=== PATIENT | female | born 1985 | race Caucasian/White ===

== ENCOUNTER → 2016-06-11 | Outpatient (CLI) | payer BC ==
[~2016-06-11] MED LIST: BCPILLS PO; CEPH-571 PO; OXYC-57 PO; OXYC1TAB3 PO
== END | disposition home or self-care (01) ==
LOC: C.PAPS 10:07
PROVIDERS: ATTEND Obstetrics & Gynecology
DX: Z01.419 Encounter for gynecological examination (general) (routine) without abnormal findings (principal)

== ENCOUNTER 2016-07-09 07:53 | Emergency (ER) | payer BC, OTHER ==
[~2016-07-09] VITALS: Ht 172.7 cm; Wt 72.0 kg
[2016-07-09 07:56] VITALS: TEMP 36.4; Ht 172.7 cm; Wt 72.0 kg
[2016-07-09] MEDS ORDERED: ONDANSETRON INJ 2 MG/ML 2 ML VIAL ONE (08:02)
[2016-07-09] MEDS ORDERED: HYDROmorphone INJ 1 MG/ML SYR ONE (08:02)
[2016-07-09] MEDS ORDERED: KETAMINE HCL INJ 50 MG/ML 10 ML VIAL IV STA (08:07)
[2016-07-09] MEDS ORDERED: SODIUM CHLORIDE 0.9% 1000ML 1,000 ML IV STA (08:07)
[2016-07-09] MEDS ORDERED: PROPOFOL IV EMULSION 10 MG/ML 20 ML VIAL IV STA (08:07)
[2016-07-09] MEDS ORDERED: METOCLOPRAMIDE HCL INJ 5 MG/ML 2 ML VIAL ONE (08:31)
--- NOTE | 2016-07-09 08:47 | DIAGNOSTIC IMAGING REPORT ---
RIGHT ANKLE MIN 3 VIEWS ROUTINE CLINICAL HISTORY: Right ankle pain status post trauma COMPARISON: None. DISCUSSION: There is an acute oblique fracture of the distal fibula. There is acute fracture of the medial malleolus. There is acute intra-articular fracture involving the anterior aspect of the distal tibia. This fracture fragment is nondisplaced and measures 23 mm. The ankle mortise appears intact on these nonstress views. There is an overlying soft tissue injury. There is soft tissue swelling. IMPRESSION: 1. Acute fracture of the medial malleolus 2. Acute intra-articular fracture involving the mid and anterior aspect of the tibial plafond 3. Acute oblique fracture of the distal fibula Electronically signed by: Mp Martinez M.D. 07/09/2016 8:46 AM Dictated Date/Time: 07/09/2016 8:43 AM
[2016-07-09] MEDS ORDERED: HYDROmorphone INJ 1 MG/ML SYR IV STA (09:27)
[2016-07-09] MEDS ORDERED: BCPILLS PO (09:35)
[2016-07-09 10:00] VITALS: BP 138/89; PULSE 102; O2SAT 100
[2016-07-09] MEDS ORDERED: OXYC1TAB3 PO (10:08)
--- NOTE | 2016-07-09 10:08 | EMERGENCY ROOM VISIT NOTE ---
ED Visit Note First contact with patient: 07:59 CHIEF COMPLAINT: Right ankle injury this morning HISTORY OF PRESENT ILLNESS: Patient is an otherwise healthy 31-year-old white female who is brought to the emergency department by family for evaluation of an acute right ankle injury that she sustained just prior to arrival. She slipped on ice outside of her home and fell. She rolled the left ankle awkwardly. She has an obvious deformity and has not attempted to bear weight. She did not strike her head or lose consciousness. She complains of pain in the right ankle that she rates a 10/10. She denies any other injuries. No numbness or weakness of the foot. She denies knee pain. REVIEW OF SYSTEMS: Review of systems as per HPI. All other systems reviewed were negative. 10 systems reviewed. PMH: Electronic medical records are reviewed and summarized as above/below. See Problem List. SOCIAL HISTORY: Patient lives at home with her family. Smoker. PHYSICAL EXAM: Vital Signs: Reviewed Nurses' notes. MENTAL STATUS: Patient is an obviously uncomfortable 31-year-old white female who is awake and alert and in moderate distress due to her right ankle injury. HEART: Regular rate and rhythm. LUNGS: Clear to auscultation. ANKLE: Examination of the right ankle show an obvious deformity. The ankle appears to be dislocated laterally. She has an abrasion noted over the medial malleolus, no puncture or active bleeding. There is no pain over the proximal fibular head. NEUROVASCULAR: Sensation intact to light touch, foot is warm and well-perfused, dorsalis pedis pulse is palpable. Capillary refills less than 2 seconds. EMERGENCY DEPARTMENT COURSE: The patient was seen and assessed immediately upon arrival in her room. She has an obvious deformity of the right ankle. Dr. Malik was appraised of the situation as the patient required conscious sedation for ankle reduction. Please refer to his separate dictation for further information. IV access was obtained. Patient was placed on a construction director. She was given Zofran 4 mg and Dilaudid 1 mg IV prior to procedure for ankle pain. After conscious sedation was administered, the ankle was reduced successfully. Postreduction x-rays were obtained and as noted below. The patient was placed in a short leg posterior and sugar tong Ortho-Glass splint. Splint placement was verified by me and was satisfactory. Patient remained neurovascularly intact. She was allowed to recover from the conscious sedation per protocol. She was reassessed frequently. She complained of increased ankle pain and was given an additional dose of Dilaudid 1 mg IV. Patient's x- rays were reviewed with Fred Juan PA-C. He discussed the patient with Dr. Claudio who was on-call for [facility], and the patient will follow-up in their office next week for further care and surgical intervention. Patient has crutches at home that she can use. Conservative care measures were discussed with her. The patient rated her ankle pain a 2/10 at discharge. Differential diagnoses entertained included fracture, dislocation, subluxation. RIGHT ANKLE MIN 3 VIEWS ROUTINE CLINICAL HISTORY: Right ankle pain status post trauma COMPARISON: None. DISCUSSION: There is an acute oblique fracture of the distal fibula. There is acute fracture of the medial malleolus. There is acute intra-articular fracture involving the anterior aspect of the distal tibia. This fracture fragment is nondisplaced and measures 23 mm. The ankle mortise appears intact on these nonstress views. There is an overlying soft tissue injury. There is soft tissue swelling. IMPRESSION: 1. Acute fracture of the medial malleolus 2. Acute intra-articular fracture involving the mid and anterior aspect of the tibial plafond 3. Acute oblique fracture of the distal fibula Current/Historical Medications Scheduled Control Pills ( Control Pills), 1 TAB PO DAILY Scheduled PRN Oxycodone Immediate Rel Tab (Roxicodone Ir), 1-2 TAB PO Q4H PRN for Severe Pain Allergies Coded Allergies: No Known Allergies (Unverified , 07/09/16) Vital Signs Date Time Temp Pulse Resp B/P Pulse Ox O2 Delivery O2 Flow Rate FiO2 07/09/16 10:00 102 16 138/89 100 Room Air 07/09/16 09:45 148/84 07/09/16 09:40 108 100 07/09/16 09:35 100 100 Nasal Cannula 2.0 07/09/16 09:30 104 147/98 100 07/09/16 09:25 109 100 07/09/16 09:20 90 23 137/95 100 07/09/16 09:15 95 20 141/86 100 Nasal Cannula 2.0 07/09/16 09:10 91 21 135/86 100 07/09/16 09:05 89 21 139/88 100 07/09/16 09:00 98 22 148/91 100 07/09/16 08:55 101 23 142/96 100 07/09/16 08:50 101 25 149/93 100 07/09/16 08:45 152/93 07/09/16 08:43 124 28 100 Nasal Cannula 4.0 07/09/16 08:40 142/85 07/09/16 08:38 135 18 07/09/16 08:35 143/80 07/09/16 08:33 141 18 07/09/16 08:30 142/74 07/09/16 08:28 143 26 07/09/16 08:24 150/84 07/09/16 08:23 127 23 99 07/09/16 08:20 140/90 07/09/16 08:18 99 22 130/90 100 07/09/16 08:15 126/67 07/09/16 08:14 78 07/09/16 08:13 86 14 100 07/09/16 08:12 124/73 07/09/16 07:56 36.4 90 18 116/70 99 Room Air Medications Administered Medications (Trade) Dose Ordered Sig/Sarah Route Start Time Stop Time Status Last Admin Dose Admin Hydromorphone HCl (Dilaudid Inj) 1 mg STK-MED ONCE .ROUTE 07/09/16 08:02 07/09/16 08:05 DC 07/09/16 08:08 1 MG Ondansetron HCl 4 mg 4 mg STK-MED ONCE .ROUTE 07/09/16 08:02 07/09/16 08:06 DC 07/09/16 08:08 4 MG Sodium Chloride (Nss 1000ml) 1,000 ml @ 999 mls/hr Q1H1M STAT IV 07/09/16 08:07 07/09/16 09:07 DC 07/09/16 08:20 999 MLS/HR Ketamine HCl (Ketalar Steri-Vial Inj) 36 mg NOW STAT IV 07/09/16 08:07 07/09/16 08:09 DC 07/09/16 08:21 36 MG Propofol (Diprivan Iv Emulsion 20ml Vial) 36 mg NOW STAT IV 07/09/16 08:07 07/09/16 08:09 DC 07/09/16 08:29 36 MG Metoclopramide HCl (Reglan Inj) 10 mg STK-MED ONCE .ROUTE 07/09/16 08:31 07/09/16 08:34 DC 07/09/16 08:36 10 MG Hydromorphone HCl (Dilaudid Inj) 1 mg NOW STAT IV 07/09/16 09:27 07/09/16 09:28 DC 07/09/16 09:34 1 MG Departure Information Impression Primary Impression: Fracture dislocation of right ankle Prescriptions Oxycodone Immediate Rel Tab (ROXICODONE IR) 5 Mg Tab 1-2 TAB PO Q4H Y for Severe Pain, #30 TAB For Initial Treatment Prov: Aliya Cardoza PA 07/09/16 Referrals No Doctor, Assigned (PCP) Patient Instructions My [facility] Additional Instructions DO NOT drive, drink alcohol, operate machinery, or perform dangerous activities today. You were given medications in the ER that can affect your ability to safely function or operate a vehicle. Oxycodone (OxyIR) 5mg: Take 1-2 pills every four hours for breakthrough pain. Avoid alcohol, operating machinery or dangerous equipment, working on ladders or roofs, DRIVING, or situations where being under the influence may be dangerous. It is recommended to use an [id number] stool softener such as Colace, 100mg twice daily while taking this medication to avoid constipation. Acetaminophen(Tylenol) may be used for fever or pain. Use 1000mg every six hours as needed. Avoid using more than 3000mg in a 24 hour period. This medication can be taken if you need to drive, work, or perform activities which may be dangerous when taking narcotic pain medication. Ice compresses for 20 minutes at a time four times daily for 2-3 days. Use the crutches as instructed with no weight on the right leg. Rest and elevate your injury. Keep the ankle above the level of your heart to reduce swelling and pain. Do not get the splint wet. If your splint feels excessively tight, you have worsening pain, develop numbness or tingling, or your digits appear blue, loosen the vandana wrap. Then reapply the vandana wrap gently without removing the splint. If your symptoms are not quickly relieved return to the ER for re- evaluation. Continue current medications. Return to the ER immediately for any numbness, tingling, severe pain, extreme swelling in the extremity or as needed. Call [facility] this afternoon to arrange follow up with Dr. Claudio for your injury.
--- NOTE | 2016-07-09 10:58 | EMERGENCY ROOM VISIT NOTE ---
ED Visit Note First contact with patient: 07:59 Procedural Sedation Indication Emergent reduction. Total time: 30 minutes. Written consent was obtained after the risks and benefits were explained to the patient, including, but not limited to aspiration, allergic reaction, breathing difficulties, cardiac complications, vomiting, pain, event recall, bleeding, and /or infection. Pre-sedation examination and paperwork completed. The patient was on 100% oxygen via NRB prior to the procedure. Continuos end tidal CO2 monitoring, pulse oximetry, and cardiac monitoring were utilized. Suction, airway equipment, medications, respiratory equipment, and appropriate personnel were prepared prior to the initiation of the procedure. A time out was taken. Sedation was achieved utilizing 36 mg of Propofol and 36 mg of Ketamine. After I observed the patient had reached the appropriate level of sedation the main procedure was performed without complication. Sedation was discontinued and the monitoring continued. The patient recovered quickly from the effects of the medication without complication or adverse event.
--- NOTE | 2016-07-09 15:56 | EMERGENCY ROOM VISIT NOTE ---
Pre-Mod Sedation Assessment General Date of Moderate Sedation: Jul 09, 2016. Vital Signs: Vital Signs Past 12 Hours Date Time Temp Pulse Resp B/P Pulse Ox O2 Delivery O2 Flow Rate FiO2 07/09/16 10:00 102 16 138/89 100 Room Air 07/09/16 09:45 148/84 07/09/16 09:40 108 100 07/09/16 09:35 100 100 Nasal Cannula 2.0 07/09/16 09:30 104 147/98 100 07/09/16 09:25 109 100 07/09/16 09:20 90 23 137/95 100 07/09/16 09:15 95 20 141/86 100 Nasal Cannula 2.0 07/09/16 09:10 91 21 135/86 100 07/09/16 09:05 89 21 139/88 100 07/09/16 09:00 98 22 148/91 100 07/09/16 08:55 101 23 142/96 100 07/09/16 08:50 101 25 149/93 100 07/09/16 08:45 152/93 07/09/16 08:43 124 28 100 Nasal Cannula 4.0 07/09/16 08:40 142/85 07/09/16 08:38 135 18 07/09/16 08:35 143/80 07/09/16 08:33 141 18 07/09/16 08:30 142/74 07/09/16 08:28 143 26 07/09/16 08:24 150/84 07/09/16 08:23 127 23 99 07/09/16 08:20 140/90 07/09/16 08:18 99 22 130/90 100 07/09/16 08:15 126/67 07/09/16 08:14 78 07/09/16 08:13 86 14 100 07/09/16 08:12 124/73 07/09/16 07:56 36.4 90 18 116/70 99 Room Air Review Cardiovascular: regular rate, rhythm, no edema, no gallop, no JVD, no murmur, normal peripheral pulses Abdomen: normal bowel sounds, non tender, soft, no organomegaly, no pulsatile mass, normal rectal exam, occult blood negative Lungs: chest non-tender, lungs clear, normal breath sounds, no respiratory distress, no accessory muscle use Airway Class: I Pre-Sedation Airway Assessment Oral Cavity: WNL Able to Visualize Vocal Cords: No Short Thick Neck: No Hx of Sleep Apnea: No Smoking Status: Current Every Day Smoker Mallampati Classification: Class I (Sft palate,uvula,fauces,pillar) ASA Classification: Class I Procedure Planning Contraindications-for Mod Sed: None Yes Notes The planned sedation has been discussed with the patient and consent obtained. I have identified the patient, determined the appropriateness of sedation and have assessed the patient immediately prior to the procedure. All medicine(s) and interventions are by my order.
--- NOTE | 2016-07-09 15:57 | EMERGENCY ROOM VISIT NOTE ---
Post-Moderate Sedation Plan General Date of Moderate Sedation Jul 09, 2016. Vital Signs: Vital Signs Past 12 Hours Date Time Temp Pulse Resp B/P Pulse Ox O2 Delivery O2 Flow Rate FiO2 07/09/16 10:00 102 16 138/89 100 Room Air 07/09/16 09:45 148/84 07/09/16 09:40 108 100 07/09/16 09:35 100 100 Nasal Cannula 2.0 07/09/16 09:30 104 147/98 100 07/09/16 09:25 109 100 07/09/16 09:20 90 23 137/95 100 07/09/16 09:15 95 20 141/86 100 Nasal Cannula 2.0 07/09/16 09:10 91 21 135/86 100 07/09/16 09:05 89 21 139/88 100 07/09/16 09:00 98 22 148/91 100 07/09/16 08:55 101 23 142/96 100 07/09/16 08:50 101 25 149/93 100 07/09/16 08:45 152/93 07/09/16 08:43 124 28 100 Nasal Cannula 4.0 07/09/16 08:40 142/85 07/09/16 08:38 135 18 07/09/16 08:35 143/80 07/09/16 08:33 141 18 07/09/16 08:30 142/74 07/09/16 08:28 143 26 07/09/16 08:24 150/84 07/09/16 08:23 127 23 99 07/09/16 08:20 140/90 07/09/16 08:18 99 22 130/90 100 07/09/16 08:15 126/67 07/09/16 08:14 78 07/09/16 08:13 86 14 100 07/09/16 08:12 124/73 07/09/16 07:56 36.4 90 18 116/70 99 Room Air Review - Discharge Plan Post Moderate Sedation Plan: On clinical assessment, the patient appears to have tolerated the conscious sedation without complications. Patient is recovering as anticipated. Patient will continue to be monitored by nursing and may be discharged when conscious sedation discharge criteria are met.
[2016-07-13] MEDS ORDERED: OXYC1TAB3 PO (09:43)
--- NOTE | 2016-08-05 08:17 | EDITING REQUIRED CODING QUERY ---
CODING QUERY To promote full compliance with coding requirements relating to patient care, provider participation is requested in all cases of home agent uncertainty. Please assist us with the question(s) below: Coding Question(s): Please dictate the procedure for the ankle reduction noted in ER Visit Notes. Physician's Response(s): Addendum dictated 08/07/2016. Thank you Ramona Metcalf Principal Diagnosis: "_that condition established after study, to be chiefly responsible for occasioning the admission of the patient to the hospital for care." Co-Existing Principal Diagnosis: "_when two or more diagnoses equally meet the criteria for principal diagnosis as determined by the circumstances of admission, diagnostic work up, and/or therapy provided, and the Alphabetic Index, Tabular List, or another coding guideline does not provide sequencing direction, any one of the diagnoses may be sequenced first." "When the physician has documented what appears to be a current diagnosis in the body of the record, but has not included the diagnosis in the final diagnostic statement, the physician should be asked whether the diagnosis should be added." (Source [facility] 2 QTR90. p3-4)
== END 2016-07-09 10:25 | disposition home or self-care (01) ==
LOC: C.EDB 07:55 → C.EDA 10:25
DX: S82.51XA Displaced fracture of medial malleolus of right tibia, initial encounter for closed fracture (principal); S82.431A Displaced oblique fracture of shaft of right fibula, initial encounter for closed fracture; S90.511A Abrasion, right ankle, initial encounter; W00.9XXA Unspecified fall due to ice and snow, initial encounter; F17.200 Nicotine dependence, unspecified, uncomplicated

== ENCOUNTER 2016-07-14 11:30 | Day surgery (SDC) | payer BC ==
[2016-07-13 09:43] VITALS: BMI 24.0
--- NOTE | 2016-07-13 17:07 | HISTORY & PHYSICAL EXAMINATION ---
DATE OF ADMISSION: 07/14/2016 CHIEF COMPLAINT: Ankle injury. HISTORY OF PRESENT ILLNESS: This is a 31-year-old female who sustained a right ankle injury at home after she fell on the ice. She reported to [facility], where she was diagnosed with a fracture dislocation. The patient's ankle was successfully reduced in the Emergency Department and splinted and she is now being set up for an open reduction and internal fixation of the right ankle fracture. PAST MEDICAL HISTORY: The patient is a healthy 31-year-old female with no heart problems, lung problems, diabetes or cancer history. SOCIAL HISTORY: She is a pack per day smoker and an occasional drinker. PAST SURGICAL HISTORY: Negative. FAMILY HISTORY: Noncontributory. REVIEW OF SYSTEMS: The patient complains of obvious right ankle pain and otherwise denies any shortness of breath, chest pain, nausea, vomiting or any other joint complaints. MEDICATIONS: Just control. ALLERGIES: No known drug allergies. PHYSICAL EXAMINATION: GENERAL: Well-developed and well-nourished 31-year-old female in no acute distress. She is alert and oriented x3 and pleasant. HEENT: Normocephalic and atraumatic. Extraocular motions are intact. Pupils are equal and reactive to light. HEART: Regular rate and rhythm. No murmurs are appreciated. LUNGS: Clear. ABDOMEN: Soft and nontender. Bowel sounds are present. EXTREMITIES: Examination of the right shoulder: Skin is intact. Range of motion and strength were deferred. Distal pulses are good. Distal sensation is also intact. DIAGNOSIS: Right ankle fracture dislocation, status post relocation. Otherwise a healthy 31-year-old female. PLAN: The patient was advised of her diagnosis. Indications, risks, benefits, and postop course have all been reviewed. The patient wishes to proceed with a right ankle ORIF. Necessary consent forms, preoperative testing and clearances will be obtained.
[~2016-07-14] VITALS: Ht 172.7 cm; Wt 72.3 kg
[~2016-07-14 11:30] MED LIST changes: +BUPIVACAINE 0.5 % 5 MG/1 ML PF 10ML VIAL ONE; +CEFAZOLIN 1000MG/55 ML D5W IV SCH; -CEPH-571 PO; +LACTATED RINGER'S 1000ML 1,000 ML IV SCH; -OXYC-57 PO
[2016-07-14] MEDS ORDERED: FENTANYL CITRATE INJ 50 MCG/1 ML 2 ML VIAL ONE ×2 (11:45→14:58)
[2016-07-14] MEDS ORDERED: MIDAZOLAM HCL 1 MG/ML 2ML VIAL ONE (11:45)
[2016-07-14] MEDS ORDERED: ONDANSETRON INJ 2 MG/ML 2 ML VIAL IV PRN (12:00)
[2016-07-14] MEDS ORDERED: ATROPINE SULFATE 0.1 MG/ML 5ML SYR IV PRN (12:00)
[2016-07-14] MEDS ORDERED: HYDROmorphone INJ 1 MG/ML SYR IV PRN (12:00)
[2016-07-14] MEDS ORDERED: LABETALOL HCL IV 5 MG/ML 20ML IV PRN (12:00)
[2016-07-14] MEDS ORDERED: MEPERIDINE HCL 25 MG/ML CARP IV PRN (12:00)
[2016-07-14] MEDS ORDERED: EpHEDrine SULFATE INJ 50 MG/ML AMP IV PRN (12:00)
[2016-07-14 12:02] VITALS: BP 141/83; PULSE 103; TEMP 36.8; O2SAT 100; Ht 172.7 cm; Wt 72.3 kg
--- NOTE | 2016-07-14 13:07 | History & Physical Bridge Note ---
H&P Re-Evaluation Bridge Note: I have examined the patient, reviewed the History & Physical and in the interval since the performance of the History & Physical I have noted the following changes of clinical significance: No changes noted
[2016-07-14] MEDS ORDERED: BUPIVACAINE/EPINEPHRINE 0.5% MPF 1:200,000 30 ML VIAL ONE (13:17)
[2016-07-14] MEDS ORDERED: DEXAMETHASONE SOD INJ 4 MG/ML VIAL ONE (14:04)
[2016-07-14] MEDS ORDERED: LIDOCAINE HCL 2% 2 ML VIAL (20MG/ML) ONE (14:04)
[2016-07-14] MEDS ORDERED: ONDANSETRON INJ 2 MG/ML 2 ML VIAL ONE (14:04)
[2016-07-14] MEDS ORDERED: PROPOFOL IV EMULSION 10 MG/ML 20 ML VIAL IV ONE (14:04)
--- NOTE | 2016-07-14 15:45 | DIAGNOSTIC IMAGING REPORT ---
INTRAOPERATIVE FLUOROSCOPIC IMAGES OF THE RIGHT ANKLE CLINICAL HISTORY: Right ankle internal fixation. COMPARISON STUDY: Right ankle radiographs July 09, 2016. Fluoroscopy time: 34 seconds. FINDINGS: Interval placement of a distal right fibular plate and screws is noted. This fixates the distal right fibular fracture. Fracture alignment has markedly improved and appears near anatomic. A medial malleolus screw is in place. Alignment of the medial malleolus fracture is near anatomic. Hardware is intact. There is no ankle mortise widening. IMPRESSION: Expected findings following distal right fibular and tibial internal fixation. Electronically signed by: Elver Horowitz M.D. 07/14/2016 3:44 PM Dictated Date/Time: 07/14/2016 3:42 PM
[2016-07-14] MEDS ORDERED: SODIUM CHLORIDE 0.9% 1000ML 1,000 ML IV SCH (15:50)
[2016-07-14] MEDS ORDERED: OXYC-57 PO (15:52)
[2016-07-14] MEDS: FENTANYL CITRATE INJ 50 MCG/1 ML 2 ML VIAL IV PRN ×4 (15:56→16:18)
--- NOTE | 2016-07-14 15:56 | Discharge Instructions ---
Discharge Instructions Date of Service Jul 14, 2016. Admission Reason for Admission: Unspecified Fracture Of Right Fibula Shaft Discharge Discharge Diagnosis / Problem: Right ankle ORIF Discharge Goals Goal(s): Improve function Activity Recommendations Activity Limitations: as noted below Weightbearing Status: Right non-weightbearing . Instructions / Follow-Up Instructions / Follow-Up No weight bearing right leg, may use crutches or scooter. Keep dressings clean, dry and in tact, DO NOT remove until follow up in the office. Ice/ Elevate as needed. Pain pills as prescribed. No driving. Follow up with Dr. Claudio or Catrachito Nolasco PA-C TuesdayJuly 20. Call [facility] at for appt. Current Hospital Diet Patient's current hospital diet: Discharge Diet Recommended Diet: Regular Diet Procedures Procedures Performed: Right Ankle Open Reduction Internal Fixation Pending Studies Studies pending at discharge: no Medical Emergencies . Who to Call and When: Medical Emergencies: If at any time you feel your situation is an emergency, please call 911 immediately. . Non-Emergent Contact Non-Emergency issues call your: Primary Care Provider . "Provider Documentation" section prepared by Catrachito Nolasco. VTE Core Measure Inpt VTE Proph given/why not?: [facility] [place] Drug Monitoring Program Search Results: patient reviewed within database, no issues identified
[2016-07-14] MEDS ORDERED: OXYCODONE/ACETAMINOPHEN 5-325 TAB PO PRN ×2 (16:00)
[2016-07-14] MEDS ORDERED: CEPH-571 PO (16:05)
--- NOTE | 2016-07-14 16:34 | [facility] Operative Report ---
Operative Report Operative Date Jul 14, 2016. Pre-Operative Diagnosis Right ankle fracture Post-Operative Diagnosis bimalleolar fx w/ comminution and nondisplaced anterior tibial plafonde,rt Procedure(s) Performed orif bimalleolar ankle fx right Surgeon Dr Claudio Financial Secretary Surgeon(s) Catrachito Nolasco PA-C Estimated Blood Loss 15 ml Findings as above Specimens none Drains none Anesthesia general and regional Complication(s) None Disposition Recovery Room / PACU Indications unstable ankle fx I attest to the content of the Intraoperative Record and any orders documented therein. Any exceptions are noted below.
--- NOTE | 2016-07-14 16:39 | Anesthesiology Progress Note ---
Anesthesia Post Op Note Date & Time Jul 14, 2016 at 16:38 Vital Signs Pain Intensity: 4 Vital Signs Past 12 Hours Date Time Temp Pulse Resp B/P Pulse Ox O2 Delivery O2 Flow Rate FiO2 07/14/16 16:30 94 12 127/70 99 Nasal Cannula 2 07/14/16 16:20 93 16 137/70 98 Nasal Cannula 2 07/14/16 16:10 110 15 135/78 100 Mask 10 07/14/16 16:00 122 17 140/94 100 Mask 10 07/14/16 15:54 36.2 115 13 138/82 100 Mask 10 07/14/16 12:02 36.8 103 20 141/83 100 Room Air Notes Mental Status: alert / awake / arousable, participated in evaluation Pt Amnestic to Procedure: Yes Nausea / Vomiting: adequately controlled Pain: adequately controlled Airway Patency, RR, SpO2: stable & adequate BP & HR: stable & adequate Hydration State: stable & adequate Anesthetic Complications: no major complications apparent
[2016-07-14 16:51] VITALS: BP 123/65; PULSE 94; TEMP 37; O2SAT 94
[2016-07-14 17:19] VITALS: BP 124/67; PULSE 94; PULSE 99; TEMP 36.8; O2SAT 98
[2016-07-14 17:42] VITALS: BP 114/70; PULSE 94; TEMP 36.6; O2SAT 95
--- NOTE | 2016-07-14 17:53 | OPERATIVE REPORT ---
DATE OF OPERATION: 07/14/2016 INDICATION FOR PROCEDURE: The patient is a 31-year-old female who suffered a right ankle fracture in a slip and fall incident. She was seen in the Emergency Room, had a fracture-dislocation of her ankle and did have an abrasion over the anterior ankle. It was not felt to be an open fracture. This was cleansed and she had a closed reduction and placed in splints. Her radiographs demonstrate that she has a spiral fibular fracture with some posterior comminution. She also has a medial malleolus fracture with some medial comminution at the fracture site and she has a nondisplaced anterior tibial plafond fracture and she also had superficial abrasion that showed no signs of infection. PREOPERATIVE DIAGNOSES: Right ankle unstable comminuted bimalleolar ankle fracture, right ankle abrasion. Anterior nondisplaced tibial plafond fracture. POSTOPERATIVE DIAGNOSIS: Same. PROCEDURE: Open reduction and internal fixation bimalleolar right ankle fracture. SURGEON: Dr. Claudio. FRICTION SAW OPERATOR: SONG Marrufo. ANESTHESIA: Popliteal block and general. OPERATIVE PROCEDURE: The patient had a regional block performed in the holding area, transferred to the operating room and placed under a general anesthetic. Pneumatic tourniquet was placed on her right upper thigh. Her right lower extremity was prepped and draped in a sterile fashion. We did use a Betadine scrub and Betadine paint because of the abrasion. Exam demonstrates that she had clearly unstable bimalleolar ankle fracture and she had anterior abrasion about 2 cm in diameter. It was anterior to the ankle joint, would be anterior to where we would make our medial incision, so did not have to horseshoe this area with our incision at all. It was superficial and not an open fracture. The abrasion area after the extremity was scrubbed and painted with Betadine was dried and we placed an Op-Site and Ioban over that area to seal that off during the procedure. Then, the right lower extremity was elevated, exsanguinated with an Esmarch bandage, pneumatic tourniquet was raised to 325 mmHg. First a lateral incision was made over the fibula in longitudinal fashion. Skin was incised sharply. Subcutaneous tissues were dissected down to the fascia which was already disrupted by the fracture. We did some more stripping of the periosteum to identify the fracture pattern, it was a spiral fracture with some posterior comminution at the tip of the fracture. The fracture was irrigated copiously and then I was able to reduce that by putting a freer elevator into the joint, manipulating the fracture which was posterior displaced anteriorly and then rotated it and placed lion-jaw type clamps on to reduce it anatomically. Then I lagged the fracture from anterior superior to posterior inferior with a Synthes stainless steel 3.5 mm cortical screw. Then we fixated the fibula using a 4-hole Synthes locking plate, first lagging the plate to the shaft with a 3.5 cortical screw in the oval hole. Then we placed one of the screws into the lateral malleolus distally all with locking screws and then [address] because of the lag screw. Then we placed [address]. There was excellent fixation and anatomic reduction of the fibula and the mortise. At this time, a curvilinear incision was made over the medial malleolus staying away from the abrasion. The skin was incised sharply. Subcutaneous flaps were elevated. The saphenous vein and nerves were retracted. The periosteum was transversely ruptured already at the medial malleolus, was a very small medial malleolus piece, but there was a comminuted fragment that had no periosteal attachment and this was removed along with another small fragment, looked like this came from the anterior edge of the tibial plafond area and was not able to be put back into place because it was too small and it might be a loose body in the ankle joint if it was placed back in position and came loose. The medial malleolus was retracted inferiorly and the clot was irrigated out of the joint talus, did not look to have any damage on it. Some of the periosteum was elevated at the edges of the fracture so we could perkins this fracture in anatomically, held it with a bone clamp and then there was a small fragment, so we only could place one 4 mm screw in it. I used the partially threaded screw. First a smooth K-wire was placed, then we chose a 44 mm screw and then drilled the outer cortex of the small fragment holding it in position with a clamp and a forceps and then placed in the screw, compressed it and checked x-rays on AP and lateral views, which demonstrated anatomic mortise alignment of all fractures on AP and lateral views and the tibial plafond fracture maintained to be nondisplaced. The wounds were then irrigated. I closed the periosteum on the medial side over the fracture with [id number] #2 Polysorb sutures and then the subcutaneous tissues were closed, both incisions with #2 Polysorb, some of the deep fascia was closed with #2 [id number] 2-0 Polysorb as well. I then did some subcuticular sutures with 2-0 Polysorb and then skin was closed with 3-0 nylon vertical mattress sutures. Then, the operation was dressed with Xeroform, sterile gauze. Other incisions were treated with Xeroform and sterile gauze and then we placed the ankle in a neutral position and used sterile Webril and then a sugar tong and posterior plaster splint was applied after the tourniquet was let down. The patient did have good capillary refill to the extremity and had minimal blood loss during the procedure and she tolerated the procedure well. SONG Marrufo was my graphic design assistant. He participated for the entire procedure. He assisted in patient positioning, assisted in soft tissue retraction, instrument management, exposure during the ORIF and he assisted in the skin closure, dressings, splint application. He will participate in postoperative care of the patient. I attest to the content of the Intraoperative Record and any orders documented therein. Any exceptio ns are noted below.
== END 2016-07-14 18:03 | disposition home or self-care (01) ==
LOC: C.ACU 11:30
PROVIDERS: ATTEND Orthopaedic Surgery Sports Medicine
DX: S82.841A Displaced bimalleolar fracture of right lower leg, initial encounter for closed fracture (principal); S90.511A Abrasion, right ankle, initial encounter; W00.0XXA Fall on same level due to ice and snow, initial encounter; Y92.89 Other specified places as the place of occurrence of the external cause

== ENCOUNTER → 2017-06-13 | Outpatient (CLI) | payer BC ==
[~2017-06-13] MED LIST changes: -BUPIVACAINE 0.5 % 5 MG/1 ML PF 10ML VIAL ONE; -CEFAZOLIN 1000MG/55 ML D5W IV SCH; -LACTATED RINGER'S 1000ML 1,000 ML IV SCH; -OXYC1TAB3 PO
== END | disposition home or self-care (01) ==
LOC: C.PAPS 11:28
PROVIDERS: ATTEND Physician Assistant
DX: Z01.419 Encounter for gynecological examination (general) (routine) without abnormal findings (principal)